=== PATIENT | male | born 1950 ===

== ENCOUNTER → 2017-02-21 | Outpatient (CLI) | payer MEDICARE, OTHER ==
[~2017-02-21] MED LIST: ASPIRIN EC81 MG PO; ATORVASTATIN CA40 MG PO; DUTASTERIDE-TA1 EACH PO; JOINT SUPPORT1 EACH PO; JUICE PLUS GARDEN PO; LEVOTHROID(SYN75 MCG PO; LISINOPRIL-HCT1 EACH PO; NITROSTAT0.4 MG SL; NORVASC5 MG PO; PEPCID40 MG PO; SAW PALMETTO PO; SUPER OMEGA PO; TOPROL XL100 MG PO; [UNRECOGNIZED DRUG - OTHER] PO
--- NOTE | ~2017-02-21 | ESTC ---
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 Risk Factors The patient risk factors include:physical activity, hypercholesterolemia, hypertension and dyslipidemia. Conclusions Summary DTS: -2(Moderate risk) Inferior medium to large fixed defect of moderate degree most consistent with prior NC. LVEF: 53% Mild inferior wall hypokinesia. Stress Protocols Resting ECG RSR. Occ PVCs. Pre-stress physical exam: Un changed. Predicted HR: 154 bpm ECG Findings Positive for ischemia. Arrhythmias No new rhythm abnormality. Symptoms No CP. Reason for termination: Fatigue and SOB. Stress Interpretation Duration: 8:10 mins. METs: 10.10 DP: 29 K. Achieved: 90% MPHR. No chest pain. Reason for termination: Fatigue and SOB. EKG: Positive for ischemia-2mm ST depression in L2. No new arrythmias. DTS: -2 (Moderate risk). Imaging Results Applied corrections - Motion correction applied High risk findings Summed scores - Summed stress score: 9 - Summed rest score: 18 - Summed difference score: -9 Stress ejection Ejection fraction:52 % EDV :109 ml ESV :52 ml Stroke volume :57 ml LV mass :142 gr LV size:Normal Normal LV function Imaging Protocols Rest Stress Isotope:Tc99m Sestamibi IV Isotope: Tc99m Sestamibi IV Isotope dose:13.8 mCi Isotope dose:43.3 mCi Date:02/21/2017 07:15 Date:02/21/2017 09:29 Technique: SPECT Technique: Gated Supine SPECT Supine IV remains in place after procedure. Scan Time:45-60 minutes post Scan Time:45-60 minutes post injection injection Medical History Admission Data Admission date: 02/21/2017 Admission Time: 06:39 Hospital Status: Outpatient. Signatures dtt: Henna Lu dtd: 02/21/17 0900 Physician Self Edit
== END | disposition disaster alternative care site (69) ==
LOC: GRAD 02-19 07:15
DX: R07.9 Chest pain, unspecified (principal); E78.00 Pure hypercholesterolemia, unspecified; E78.5 Hyperlipidemia, unspecified; I10 Essential (primary) hypertension
CPT/HCPCS: A9500

== ENCOUNTER → 2017-03-19 | Outpatient (CLI) | payer MEDICARE, OTHER ==
[2017-03-19 15:58] LABS: BASOPHIL % 0.4 %; EOSINOPHIL # 0.2 K/uL (0.0-0.5); EOSINOPHIL % 2.2 %; HEMATOCRIT 39.9 % (37.0-53.0); HEMOGLOBIN 14.2 g/dL (11.0-16.0); IMMATURE GRANULOCYTE % 0.4 %; LYMPHOCYTE % 23.8 %; MCH 30.7 pg (27.0-34.0); MCHC 35.6 gm/dL (32.0-36.5); MCV 86.4 fl (83.0-98.0); MONOCYTE # 0.7 K/uL (0.0-1.0); MONOCYTE % 8.9 %; MPV 9.6 fl (9.4-12.4); NEUTROPHIL # (ANC) 5.3 K/uL (1.4-9.0); NEUTROPHIL % 64.3 %; NRBC % 0 /100WBC (0-0.00); PLATELET COUNT 250 K/uL (150-450); RBC 4.62 M/uL (3.50-5.50); RDW-CV 12.5 % (11.9-14.6); WBC 8.3 K/uL (4.0-11.0)
[2017-03-19 16:10] LABS: ALBUMIN 3.8 gm/dL (3.5-5.0); ANION GAP 11.3 (10.0-19.0); CALCIUM 8.7 mg/dL (8.5-10.5); CREATININE 1.5 mg/dL (0.6-1.3); POTASSIUM 3.3 mMol/L (3.7-5.1)
== END | disposition disaster alternative care site (69) ==
LOC: LGSOS 15:43
PROVIDERS: Internal Medicine Interventional Cardiology
DX: R07.9 Chest pain, unspecified (principal)

== ENCOUNTER 2017-03-28 05:54 | Outpatient (CLI) | payer MEDICARE, OTHER ==
[~2017-03-28] VITALS: Ht 177.8 cm; Wt 82.0 kg
--- NOTE | ~2017-03-28 | CATH ---
Cardiac Diagnostic Report Demographics Patient Name AMY KNIGHT Gender Male K Date of 1950 Age 66 year(s) Patient Number [id number] Date of Study 03/28/2017 Visit Number [id number] Room Number [id number] [place] [id number] Ht 177.8 cm Wt 82 kg Referring Aly Primary Physician Physician Henna Butler Performing Aly Secondary Physician Physician Henna WALLS Diagnostic Aly Assisting Physician Physician Henna WALLS Interventional Physician Fur Remodeler Physician Findings and Conclusions Diagnostic Findings and Conclusion Calcification involving proximal coronary vessels LVEDP = 6, no gradient across valve Minimal CAD Diagnostic Recommendations Secondary prevention measures Procedure Description The patient was brought to the diagnostic cardiac catheterization-EP laboratory in the fasting, non-sedated state. Informed consent was obtained in the written and verbal form after the risks and benefits were explained. The patient had no further questions and agreed to proceed. The planned puncture-incision site(s) were shaved and prepped with ChloraPrep and draped in the usual sterile manner. Conscious sedation, supplemental oxygen, and pain control medications were delivered by a registered nurse under physician guidance. Surface ECG rhythm, blood pressure measurement, and pulse oximetry were monitored throughout the procedure. Arterial access. The access site was infiltrated with lidocaine. The vessel was entered with the Seldinger technique. A sheath was advanced into the vessel and used for catheter placement. Selective left coronary angiography. A catheter was advanced into the left coronary vessel ostium under Fluoroscopic guidance. Contrast was injected by hand. Images were obtained in multiple projections. Selective right coronary angiography. A catheter was advanced into the right coronary vessel ostium under fluoroscopic guidance. Contrast was injected by hand. Images were obtained in multiple projections. Left heart catheterization. A catheter was advanced across the aortic valve to the left ventricle under fluoroscopic guidance. Resting hemodynamics were obtained. Arterial artery hemostasis was achieved. The patient was transferred to a regular nursing floor via cart accompanied by a nurse. The patient left the laboratory in stable condition. Diagnostic Cath Status: Elective Procedure Procedure Type Diagnostic procedure:Angiography:, Coronary Angios, Coronary Angios w/[facility] Indications: Atypical chest pain. The procedure was explained in detail to the patient. Risks, complications and alternative treatments were reviewed. Written consent was obtained. Medications Reviewed with Patient prior to Procedure. Angiographic Findings Dominance: Left Cardiac Arteries and Lesion Findings LMCA: Minor Luminal Irregularities. LAD: Minor Luminal Irregularities.Type III LCx: Minor Luminal Irregularities.Dominant RCA: Minor Luminal Irregularities. Ramus: Minor Luminal Irregularities. Procedure Data Procedure Date Date: 03/28/2017Start: 08:11 AMEnd: 09:09 AM Entry Locations - The Right Radial artery access attempt was not successful. Entry Comments: Unable to advance wire.. - Retrograde Percutaneous access was performed through the Right Femoral artery (Primary location). A 7 Fr sheath was inserted. Hemostasis was successfully obtained using Angio-Seal STS PLUS ([facility]). Procedure Medications Order and Administration + + +-------+ + !Time !Medication !Dosage !Route ! + + +-------+ + !03/28/2017 08:07 AM !Versed !1 mg !I.V. ! + + +-------+ + !03/28/2017 08:12 AM !Fentanyl !50 mcg !I.V. ! + + +-------+ + !03/28/2017 08:35 AM !Versed !1 mg !I.V. ! + + +-------+ + !03/28/2017 08:41 AM !0.9% NaCl !250 ml !I.V. bolus ! + + +-------+ + !03/28/2017 08:48 AM !Fentanyl !50 mcg !I.V. ! + + +-------+ + Devices Used - A6 Fr. BS JR 4 Diag. Catheterwas used for:Right coronary angiography. - A6 Fr. BS JL 4 Diag. Catheterwas used for:Left coronary angiography. - A6 Fr. BS JL 3.5 Diag. Catheterwas used for:Was not used. Contrast Material - Isovue 58484 ml Fluoroscopy Time: Diagnostic: 0:00 minutes. Total: 0:00 minutes. Fluoroscopy Dose: Diagnostic: 975 mGy. Total: 975 mGy. Estimated Blood Loss: 15 ml. Medical History Allergies - No known allergies. Risk Factors The patient risk factors include:treated and uncontrolled hypertension, last creatinine: 1.5 mg/dl, creatinine clearance: 56.19 ml/min and dyslipidemia. Admission Data Admission Date: 03/28/2017 Admission Time: 05:54 AM Admit Source: Other Insurance Payors: Medicare. Admission Medications + +------+------+ + + + + !Medication !Dosage!Times !Last !Last !Administered !Comments ! ! ! !Per !Delivery !Delivery ! ! ! ! ! !Day !Date !Time ! ! ! + +------+------+ + + + + !Aspirin ! ! ! ! !Yes ! ! !(any) ! ! ! ! ! ! ! + +------+------+ + + + + !ELIZA ! ! ! ! !Yes ! ! !Inhibitor ! ! ! ! ! ! ! !(any) ! ! ! ! ! ! ! + +------+------+ + + + + !Beta Lisbeth! ! ! ! !Yes ! ! !(any) ! ! ! ! ! ! ! + +------+------+ + + + + Clinical Evaluation Leading to Procedure - The patient's CAD presentation was assessed as: Symptom unlikely to be ischemic. - Anti-anginal medications were prescribed during the past two weeks. The medication is: Beta Blockers. VA LV function assessed . Ejection Fraction - 02/21/2017 - Method: Radionucleotide. EF%: 53. Hemodynamics Condition: Rest O2 Consumption: Estimated: 223.02Heart Rate: 57 bpm Pressures (mmHg) +-----+ + !Site !Pressure ! +-----+ + !LV !104/0 ,5 ! +-----+ + !LV !108/0 ,9 ! +-----+ + !AO !109/62 (82) ! +-----+ + !LV !111/-2 ,3 ! +-----+ + !AO !105/61 (79) ! +-----+ + Valve Gradients and Areas + +---------+---------+---------+ +---------+ + !Valve !Peak !Mean !Area !Index !Flow !Source ! + +---------+---------+---------+ +---------+ + !Aortic !2 !0 ! ! ! ! ! + +---------+---------+---------+ +---------+ + !Aortic !2 !0 ! ! ! ! ! + +---------+---------+---------+ +---------+ + Shunts Oxygen Values O2 Capacity 193.12 O2 Consumption 223.02 Discharge Data Discharge Date: 03/28/2017 Hospital Status: Outpatient Signatures dtt: Henna Lu dtd: 03/28/17 0811 Physician Self Edit
[~2017-03-28 05:54] MED LIST changes: -ATORVASTATIN CA40 MG PO
[2017-03-28] MEDS ORDERED: ATORVASTATIN CA40 MG PO (10:40)
== END 2017-03-28 15:15 | disposition disaster alternative care site (69) ==
LOC: GCAT 05:54 → GPCU 05:54 → GPOC 06:00 → GCAT 15:15
PROC: 4A023N7 Measurement of Cardiac Sampling and Pressure, Left Heart, Percutaneous Approach (ICD-10-PCS; principal; 2017-03-28)
PROC: B216YZZ Fluoroscopy of Right and Left Heart using Other Contrast (ICD-10-PCS; 2017-03-28)
DX: I25.10 Atherosclerotic heart disease of native coronary artery without angina pectoris (principal)
CPT/HCPCS: C1760; C1894; J1644; J2001; J2250; J3010; J7030

== ENCOUNTER → 2017-04-10 | Outpatient (CLI) | payer MEDICARE, OTHER ==
[~2017-04-10] MED LIST changes: +ATORVASTATIN CA40 MG PO
[2017-04-10 12:10] LABS: ANION GAP 10.5 (10.0-19.0); CREATININE 1.3 mg/dL (0.6-1.3); POTASSIUM 3.5 mMol/L (3.7-5.1)
== END ==
LOC: LGSOS 11:44
PROVIDERS: Internal Medicine Interventional Cardiology
DX: I10 Essential (primary) hypertension (principal)